=== PATIENT | female | born 2000 | race Caucasian/White ===

== ENCOUNTER 2024-03-26 07:30 | Outpatient (RCR) | payer BC, SELFPAY | END 2024-06-05 08:53 | disposition home or self-care (01) | PROVIDERS: PCP Physician Assistant; Visit Provider Physician Assistant | DX: M77.8 Other enthesopathies, not elsewhere classified (principal); Z51.89 Encounter for other specified aftercare | CPT/HCPCS: 97033; 97035; 97110; 97140; 97165; X5282 ==